=== PATIENT | female | born 1955 | race Caucasian/White ===

== ENCOUNTER → 2018-03-21 | Day surgery (SDC) | payer OTHER ==
[~2018-03-21] VITALS: Ht 165.1 cm; Wt 93.6 kg
[~2018-03-21] MED LIST: ACETAMINOPHEN 1000 MG/100 ML 100 ML IV SCH; BUPIVACAINE/EPINEPHRINE 0.5% PF 10 ML VIAL ONE; CHLORHEXIDINE GLUCONATE 2 % 1 PACK (2 CLOTHS) TOPICAL PRN; CYMB60CA PO; DEXAMETHASONE SOD PHOS 4 MG/ML VIAL IV ONE; DO NOT ADM ANY ANTICOAGULANT DRUGS PRN; GLYCOPYRROLATE 1 MG/5 ML SYRINGE IV PUSH ONE; KETOROLAC TROMETHAMINE 30 MG/ML (IVP) VIAL IV PUSH ONE; KETOROLAC TROMETHAMINE 30 MG/ML (IVP) VIAL ONE; LACTATED RINGER'S 1000 ML IV PRN; LIDOCAINE HCL 1% PF 5 ML SYRINGE OTHER ONE; METOPROLOL TARTRATE 25 MG TAB PO PRN; MIDAZOLAM HCL 2 MG/2 ML VIAL ONE; MORPHINE SULFATE 4 MG/ML INJ IV PUSH PRN; NEOSTIGMINE 5 MG/5 ML SYRINGE IV PUSH ONE; OMEP20TA93 PO; ONDANSETRON HCL 4 MG/2 ML VIAL IV PUSH ONE; ONDANSETRON ODT 4 MG TAB PO PRN; POVIDONE IODINE 5% (ANTISEPSIS KIT) 4 APPLICATIONS EACH NARE PRN; PROPOFOL 200 MG/20 ML AMP IV ONE; RANI150T PO; ROCURONIUM INJ 50 MG/5 ML SYRINGE IV PUSH ONE; SODIUM CHLORID 0.9% 500 ML IV PRN; VITA1000 PO; ceFAZolin 2 GM PREMIX 50 ML IV SCH; metroNIDAZOLE 500 MG INJ 100 ML IV SCH; oxyCODONE/ACETAMINOPHEN 5 MG/325 MG TAB PO PRN
--- NOTE | 2018-03-21 13:02 | PD.OP ---
cc: Jaycob Huston MD Operative Report Date of Surgery: Mar 21, 2018 Preoperative Diagnosis: (1) Cholelithiasis (2) S/P ERCP Postoperative Diagnosis: (1) Acute cholecystitis due to biliary calculus (2) S/P ERCP Procedure: Laparoscopic cholecystectomy Anesthesia: General Surgeon: Jaycob Huston Professor Of Geology(s): Zara Mondragon [facility] Operation and Findings: Complications: None apparent EBL: 50cc Operative findings: Distended inflamed gallbladder full of large and small stones. Gallbladder inadvertently entered with dark green thick bile present. Procedure in detail: The patient was taken to the operating room and placed in the supine position. General endotracheal anesthesia was induced. The abdomen was prepped and draped in usual sterile fashion and a surgical timeout was performed to verify correct patient procedure and site. Appropriate perioperative antibiotics were administered. Local anesthetic was injected in the skin and subcutaneous tissue superior to the umbilicus and a 5 mm incision performed. The abdomen was entered using the Optiview 5 mm trocar with direct laparoscopic visualization. The abdomen was then insufflated to 15 mmHg with CO2 gas which the patient tolerated well. Next a 12 mm port was placed in the epigastrium and two 5 mm ports in the right upper quadrant and right lateral abdomen. The patient was placed in reverse Trendelenburg position and turned slightly to the left. Attention was turned to the right upper quadrant and the dome of the gallbladder was grasped and retracted cephalad. The infundibulum was retracted laterally to expose Calot's triangle. The gallbladder is inflamed with thickened wall consistent with acute cholecystitis. Blunt dissection and judicious use of electrocautery was used to expose the cystic duct and the cystic artery directly entering the gallbladder. Two clips were placed proximally on each of these structures and one distally and they were transected. The gallbladder was then removed from the liver bed using electrocautery. Gallbladder was inadvertently entered with spillage of some thick dark bile. A couple of small stones spilled and were retrieved. The gallbladder was fully removed from the liver bed. Hemostasis was achieved using electrocautery as well as Surgicel powder. The gallbladder was then removed from the abdomen using an Endo Catch bag. The clips were in place on the cystic duct and cystic artery stumps with no bleeding or bile leakage. At this point, the abdomen was allowed to desufflate and trochars were removed. The fascia at the 12 mm port site was closed with 0 Vicryl suture using fascial closure device. Skin was closed with subcuticular 4-0 Monocryl as well as Steri-Strips. The patient tolerated the procedure well and was extubated and taken to PACU in stable condition. All sponge and instrument counts were correct. Jaycob Huston MD Mar 21, 2018 13:02
[2018-03-21 14:36] VITALS: BP 120/76; PULSE 57; RESP 18; TEMP 98.1; O2SAT 96
== END | disposition home or self-care (01) ==
LOC: HSDC 09:02
PROVIDERS: ATTEND Surgery
DX: K80.00 Calculus of gallbladder with acute cholecystitis without obstruction (principal); K80.10 Calculus of gallbladder with chronic cholecystitis without obstruction; L02.91 Cutaneous abscess, unspecified; J30.9 Allergic rhinitis, unspecified; K59.09 Other constipation; M79.7 Fibromyalgia; R74.8 Abnormal levels of other serum enzymes; K21.9 Gastro-esophageal reflux disease without esophagitis; R74.0 Nonspecific elevation of levels of transaminase and lactic acid dehydrogenase [LDH]; H40.003 Preglaucoma, unspecified, bilateral; L50.9 Urticaria, unspecified; R49.0 Dysphonia; M25.562 Pain in left knee; D17.9 Benign lipomatous neoplasm, unspecified; M25.462 Effusion, left knee; J31.0 Chronic rhinitis; G25.81 Restless legs syndrome; R00.0 Tachycardia, unspecified; R25.1 Tremor, unspecified; R06.02 Shortness of breath
CPT/HCPCS: 00790; 47562; 88304; J0131; J0690; J1100; J1885; J2250; J2405; J2710; J3010; J7120